=== PATIENT | male | born 2000 | race Hispanic/Latino ===

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

== ENCOUNTER 2024-05-10 00:01 | Emergency (ER) | payer OTHER ==
[~2024-05-10] VITALS: Ht 167.6 cm; Wt 86.2 kg
[~2024-05-10 00:01] MED LIST: DOXY100T2 PO
[2024-05-10 00:02] VITALS: BP 138/70; PULSE 71; RESP 20; TEMP 96.9
[2024-05-10] MEDS ORDERED: CETI10TA57 PO (00:20)
[2024-05-10] MEDS ORDERED: HYDR-3421 PO (00:20)
[2024-05-10] MEDS: hydrOXYzine 50MG VIAL 50 MG/ML VIAL IM SCH (00:24)
== END 2024-05-10 01:32 | disposition home or self-care (01) ==
LOC: EDH 00:01
DX: L50.0 Allergic urticaria (principal); L70.0 Acne vulgaris; G47.00 Insomnia, unspecified; Z79.899 Other long term (current) drug therapy; Z98.890 Other specified postprocedural states
CPT/HCPCS: 99283; 87880; 96372; J3410

== ENCOUNTER 2024-09-22 20:50 | Emergency (ER) | payer OTHER ==
[~2024-09-22] VITALS: Ht 167.6 cm; Wt 88.5 kg
[~2024-09-22 20:50] MED LIST changes: +CETI10TA57 PO; +HYDR-3421 PO
--- NOTE | 2024-09-22 21:07 | ERN ---
ED Note History of Present Illness Stated Complaint: RIGHT LEG PAIN Chief Complaint: Lower Extremity Pain/Injury Time Seen by MD: 20:51 Time Seen by Midlevel: 20:51 Dictation: The patient is a 23-year-old male with no significant past medical history who presents to the emergency department with complaints of right thigh pain onset Monday after a testosterone injection. Patient reports usually gets this pain after the injections. Reports pain has subsided but states that his job is requiring a excuse to return to work. No other complaints reported. Allergies: Coded Allergies: No Known Allergies (Unverified Allergy, Unknown, 11/26/23) Home Meds Active Scripts Cetirizine HCl (Cetirizine HCl) 10 Mg Tablet, 10 MG PO nightly, #14 TAB 0 Refills Prov:DREW ROSE NP 05/10/24 Hydroxyzine HCl (Hydroxyzine HCl) 25 Mg Tablet, 25 MG PO q8 hours PRN, #15 TAB 0 Refills Prov:DREW ROSE NP 05/10/24 Doxycycline Hyclate (Doxycycline Hyclate) 100 Mg Tablet, 100 MG PO BID, #20 TAB 0 Refills Prov:SHANNA HUYNH 12/02/23 Past Medical History Past Medical History: No Pertinent History Surgical History: Other Surgical History Other: LEFT HIP ABSCESS Social History: Negative, Lives with family RN Note Reviewed/Agreed w/PFSH: Yes Review of System Dictation Constitutional: Negative for fever,chills, and weight loss Eyes: Negative for injury, pain,redness, and discharge ENT: Negative for injury,pain or swelling Cardiovascular: Negative for chest pain, palpitations, and edema Respiratory: Negative for shortness of breath, cough, and wheezing, Abdomen/GI: Negative for abdominal pain, nausea, vomiting, diarrhea, and constipation Back: Negative for injury and pain : Negative for injury, bleeding and discharge MS/Extremity: Negative for injury and deformity positive for right thigh pain Skin: Negative for rash, and discoloration Neuro: Negative for headache, weakness, numbness, tingling, and seizure Psych: Negative for suicide ideation, homicidal ideation, and hallucinations Initial Vital Sign VS Vital Signs Date Time Temp Pulse Resp B/P (MAP) Pulse Ox O2 Delivery O2 Flow Rate FiO2 09/22/24 20:54 98.4 102 20 176/84 100 Room Air Physical Exam Dictation Vital Signs reviewed General Appearance: Alert, oriented x 3, no acute distress, well developed, nourished. Head and Face: non-traumatic. Eyes: PERRL, pink conjunctivas, eyelid no trauma, anterior chamber with arcus senilis. Ears: Pinnas intact and no signs of trauma or erythema ear canals clear and no discharge TM no erythema Nose: No discharge, no bleeding. Oropharynx: Mouth normal, tongue pink. pharynx clear,no erythema, tonsils no exudates, no abscesses noted, mucous membrane moist Neck: Supple, non-tender, no thyromegaly, no masses, no JVD, no bruits Breast:Deferred Chest:No tenderness, no crepitus, no paradoxical movement, no retractions Lungs:Clear, well-ventilated, symmetric, no rales, no wheezing, no rhonchi, no stridor, good breath sounds bilaterally Heart: Regular rate, regular rhythm, no murmur, no gallops Vascular: no peripheral edema, Abdomen: Soft, positive bowel sounds, nondistended, no guarding, nontender, no rebound, no masses no hepatomegaly, no splenomegaly, no Christian's sign, no hernias. Rectal: Deferred Genital: Deferred Neurological: Normal speech, motor function intact, sensory function intact Musculoskeletal: Neck nontender, full range of motion, back nontender, full range of motion, Extremities: nontender, full range of motion Skin: Color pink, dry, no turgor, no rash, no lacerations, no abrasions, no contusions. Lymphatic: Deferred Results (Laboratory/Radiology) Labs Reviewed?: Yes ED Course ED Course Vital Signs Date Time Temp Pulse Resp B/P (MAP) Pulse Ox O2 Delivery O2 Flow Rate FiO2 09/22/24 20:54 98.4 102 20 176/84 100 Room Air Medical Decision Making MDM The patient is a 23-year-old male with no significant past medical history who presents to the emergency department with complaints of right thigh pain onset Monday after a testosterone injection. Patient reports usually gets this pain after the injections. Reports pain has subsided but states that his job is requiring a excuse to return to work. No other complaints reported. Patient at this time does not want any further imaging or test. Reports that this pain is always coming when he injects himself but he just needs an excuse to return to work. Patient in no acute distress, nontender thigh, no wounds we will be discharged to follow up with PCP. Differential diagnosis: Thigh cramp, thigh contusion, cellulitis Need for hospitalization: Patient does not meet criteria for hospitalization. There are no social concerns with this patient. DX & DISP Disposition: Discharge Departure Impression: Primary Impression: Pain in right thigh Condition: Stable Additional Instructions: FOLLOW-UP WITH PRIMARY CARE PROVIDER IN 1 TO 2 DAYS. TAKE MEDICATIONS DIRECTED HERE IN THE EMERGENCY ROOM. OKAY TO CONTINUE HOME MEDICATIONS UNLESS OTHERWISE DISCUSSED DURING YOUR VISIT IN THE EMERGENCY ROOM TODAY. RETURN TO YOUR NEAREST EMERGENCY ROOM IF SYMPTOMS WORSEN OR IF THERE IS NO IMPROVEMENT. CALL 911 IF YOU NEED IMMEDIATE ASSISTANCE. TAKE TYLENOL OR MOTRIN [id number] NEEDED AND IF NO CONTRAINDICATIONS ARE PRESENT. INCREASE ORAL HYDRATION. A WOUND CULTURE OR URINE CULTURE WAS ORDERED HERE IN THE EMERGENCY ROOM DEPARTMENT PLEASE FOLLOW-UP WITH PRIMARY CARE PROVIDER AND ADVISE THEM TO GET REPEAT PORTS FROM OUR FACILITY. IF YOU HAD ANY [place] WRAP/SPLINTS THAT WERE APPLIED HERE, PLEASE DO NOT REMOVE THEM UNTIL YOU SEE YOUR PRIMARY CARE OR SPECIALTY. Referrals: SELF,REFERRAL (PCP) Time of Disposition: 21:06 I have reviewed the case, and I agree with, Diagnosis and Plan SADIE ROSALES Sep 22, 2024 21:07
[2024-09-22 21:10] VITALS: BP 152/74; PULSE 90; RESP 20; TEMP 98.4; O2SAT 100
== END 2024-09-22 21:23 | disposition home or self-care (01) ==
LOC: EDH 20:50
DX: M79.651 Pain in right thigh (principal)
CPT/HCPCS: 99282